=== PATIENT | male | born 1975 | race Caucasian/White ===

== ENCOUNTER 2018-05-12 19:18 | Emergency (ER) | payer MEDICAID, OTHER ==
[~2018-05-12] VITALS: Ht 170.2 cm; Wt 83.9 kg
[2018-05-12 19:31] VITALS: BP 138/85
[2018-05-12] MEDS ORDERED: IBUPROFEN 800 MG TAB PO ONE (22:00)
[2018-05-12] MEDS ORDERED: ACETAMINOPHEN 500 MG TAB PO ONE (22:00)
== END 2018-05-12 22:10 | disposition home or self-care (01) ==
LOC: ER 19:18
DX: S52.602A Unspecified fracture of lower end of left ulna, initial encounter for closed fracture (principal); S43.084A Other dislocation of right shoulder joint, initial encounter; S63.501A Unspecified sprain of right wrist, initial encounter; V00.311A Fall from snowboard, initial encounter; Y93.23 Activity, snow (alpine) (downhill) skiing, snowboarding, sledding, tobogganing and snow tubing; Y99.8 Other external cause status; Y92.89 Other specified places as the place of occurrence of the external cause
CPT/HCPCS: 29125; 73030; 73110; 73130